=== PATIENT | female | born 1955 | race Caucasian/White ===

== ENCOUNTER 2021-05-18 18:28 | Emergency (ER) | payer MEDICARE, MEDICAID ==
[~2021-05-18] VITALS: Ht 162.6 cm; Wt 69.4 kg
--- NOTE | 2021-05-18 18:57 | ED Syncope ---
General Chief Complaint: Dizziness/Syncope Stated Complaint: GAVE BLOOD, PASSED OUT WHILE HOME, HIGH BLOOD SUGA Nursing Triage Note: PT STATES SHE GAVE BLOOD EARLIER IN DAY AND THEN LATER AT WAS DIZZY AND FAINTED. Source of Information: Patient Exam Limitations: No Limitations History of Present Illness Date Seen by Provider: May 18, 2021 Time Seen by Provider: 18:44 Initial Comments The patient presents ER by private conveyance with chief complaint that she had a syncopal episode about 1 hour prior to arrival witnessed by her Martin. She was sitting on a step and fell backwards but did not fall to the ground or strike her head. She was unconscious for about a minute. Her lowered her to the floor and she seemed to improve. At that time her blood pressure was measured 101 systolic. Afterwards they found her blood sugar to be in the 150s which is high for her. She is on Victoza and Metformin for diabetes. She is on lisinopril 10 mg for her blood pressure. She has an intolerance to statins but no history of coronary disease. She does not smoke use drugs or drink alcohol. She had given blood earlier today and then was not eating as much as usual. She has not felt sick. She was also noted to have been running around after her grandchildren and she is visiting all day. 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 Presyncopal she had a feeling of dizziness coming on when she handed off a grandchild she was holding to her . She had 1 episode of emesis. Allergies and Home Medications Allergies Coded Allergies: Penicillins (Verified Allergy, Unknown, 05/18/21) Bknwlep-XED-GbI Reductase Inhibitor (Verified Allergy, Unknown, 05/18/21) Patient Home Medication List Home Medication List Reviewed: Yes Review of Systems Constitutional: No chills, No diaphoresis EENTM: No ear discharge, No ear pain Respiratory: No cough, No dyspnea on exertion Cardiovascular: No chest pain, No edema, No Hx of Intervention, No palpitations; syncope; No vascular heart diseas Gastrointestinal: No abdominal pain; nausea; No vomiting Genitourinary: No discharge, No dysuria Musculoskeletal: No back pain, No joint pain All Other Systems Reviewed Negative Unless Noted: Yes Past Hkbvzng-Zdczlc-Aylfin Hx Patient Social History Tobacco Use?: No Use of E-Cig and/or Vaping dev: No Substance use?: No Physical Exam Vital Signs Vital Signs - First Documented 05/18/21 18:46 Temp 36.6 Pulse 64 Resp 20 B/P (MAP) 127/45 (72) O2 Delivery Room Air Capillary Refill : Less Than 3 Seconds Height, Weight, BMI Height: '" Weight: lbs. oz. kg; 26.00 BMI Method: General Appearance: No Apparent Distress (She appears mild and peckish), WD/WN HEENT: PERRL/EOMI, Pharynx Normal, Moist Mucous Membranes Neck: Full Range of Motion, Normal Inspection, Non Tender Cardiovascular: Regular Rate, Rhythm, No Edema, Normal Peripheral Pulses Respiratory: Lungs Clear, Normal Breath Sounds, No Accessory Muscle Use, No Respiratory Distress Gastrointestinal: Normal Bowel Sounds, No Organomegaly, No Pulsatile Mass Extremities: Normal Capillary Refill, Normal Inspection, Normal Range of Motion, Non Tender, No Pedal Edema Neurologic/Psychiatric: Alert, Oriented x3, Normal Mood/Affect, 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 Norm as Tested Cranial Nerves: Normal Hearing, Normal Speech Motor/Sensory: No Motor Deficit, No Sensory Deficit, No Pronator Drift Skin: Normal Color, Warm/Dry Progress/Results/Core Measures Results/Orders Lab Results Laboratory Tests Test 05/18/21 18:48 05/18/21 18:55 05/18/21 19:08 Range/Units Glucometer 126 H 70-110 MG/DL White Blood Count 8.9 4.3-11.0 10^3/uL Red Blood Count 4.19 3.80-5.11 10^6/uL Hemoglobin 12.6 11.5-16.0 g/dL Hematocrit 38 35-52 % Mean Corpuscular Volume 90 80-99 fL Mean Corpuscular Hemoglobin 30 25-34 pg Mean Corpuscular Hemoglobin Concent 33 32-36 g/dL Red Cell Distribution Width 12.7 10.0-14.5 % Platelet Count 190 130-400 10^3/uL Mean Platelet Volume 9.3 9.0-12.2 fL Immature Granulocyte % (Auto) 1 % Neutrophils (%) (Auto) 57 42-75 % Lymphocytes (%) (Auto) 36 12-44 % Monocytes (%) (Auto) 5 0-12 % Eosinophils (%) (Auto) 1 0-10 % Basophils (%) (Auto) 0 0-10 % Neutrophils # (Auto) 5.1 1.8-7.8 10^3/uL Lymphocytes # (Auto) 3.2 1.0-4.0 10^3/uL Monocytes # (Auto) 0.5 0.0-1.0 10^3/uL Eosinophils # (Auto) 0.1 0.0-0.3 10^3/uL Basophils # (Auto) 0.0 0.0-0.1 10^3/uL Immature Granulocyte # (Auto) 0.1 0.0-0.1 10^3/uL Sodium Level 138 135-145 MMOL/L Potassium Level 4.0 3.6-5.0 MMOL/L Chloride Level 104 98-107 MMOL/L Carbon Dioxide Level 21 21-32 MMOL/L Anion Gap 13 5-14 MMOL/L Blood Urea Nitrogen 16 7-18 MG/DL Creatinine 0.94 0.60-1.30 MG/DL Estimat Glomerular Filtration Rate 66 BUN/Creatinine Ratio 17 Glucose Level 141 H 70-105 MG/DL Calcium Level 8.9 8.5-10.1 MG/DL Corrected Calcium 8.9 8.5-10.1 MG/DL Magnesium Level 2.1 1.6-2.4 MG/DL Total Bilirubin 0.4 0.1-1.0 MG/DL Aspartate Amino Transf (AST/SGOT) 18 5-34 U/L Alanine Aminotransferase (ALT/SGPT) 21 0-55 U/L Alkaline Phosphatase 40 40-136 U/L Troponin I < 0.028 <0.028 NG/ML C-Reactive Protein High Sensitivity 0.08 0.00-0.50 MG/DL Total Protein 6.5 6.4-8.2 GM/DL Albumin 4.0 3.2-4.5 GM/DL Urine Color YELLOW Urine Clarity CLEAR Urine pH 6.0 5-9 Urine Specific [place] 1.020 1.016-1.022 Urine Protein TRACE H NEGATIVE Urine Glucose (UA) NEGATIVE NEGATIVE Urine Ketones TRACE H NEGATIVE Urine Nitrite NEGATIVE NEGATIVE Urine Bilirubin NEGATIVE NEGATIVE Urine Urobilinogen 0.2 < = 1.0 MG/DL Urine Leukocyte Esterase 2+ H NEGATIVE Urine RBC (Auto) TRACE-I H NEGATIVE Urine RBC RARE /HPF Urine WBC 2-5 /HPF Urine Crystals PRESENT H /LPF Urine Amorphous Sediment RARE JONH URATES H /LPF Urine Bacteria TRACE /HPF Urine Casts NONE /LPF Urine Mucus NEGATIVE /LPF Urine Culture Indicated NO My Orders Orders - WILTON MARIN Ed Iv/Invasive Line Start (05/18/21 18:51) Lactated Ringers (Lr 1000 Ml Iv Solution (05/18/21 19:00) Ondansetron Injection (Zofran Injectio (05/18/21 19:00) Cbc With Automated Diff (05/18/21 18:51) Comprehensive Metabolic Panel (05/18/21 18:51) Hs C Reactive Protein (05/18/21 18:51) Orthostatic Vital Signs (Adult (05/18/21 18:51) Magnesium (05/18/21 18:51) Ua Culture If Indicated (05/18/21 18:51) Troponin I [place] (05/18/21 18:51) Continuous Ekg Monitoring (05/18/21 18:51) Ekg Tracing (05/18/21 18:51) Accucheck Stat ONCE (05/18/21 18:57) Ondansetron Injection (Zofran Injectio (05/18/21 20:30) Rx-Ondansetron Po (Rx-Zofran Po) (05/18/21 20:20) Medications Given in ED Current Medications Medications Dose Ordered Sig/Micah Route Start Time Stop Time Status Last Admin Dose Admin Lactated Ringer's 1,000 ml @ 0 mls/hr Q0M ONCE IV 05/18/21 19:00 05/18/21 19:01 DC 05/18/21 19:24 999 MLS/HR Ondansetron HCl 4 mg ONCE ONCE IVP 05/18/21 19:00 05/18/21 19:01 DC 05/18/21 19:24 4 MG Vital Signs/I&O 05/18/21 05/18/21 18:46 19:03 Temp 36.6 Pulse 64 61 65 72 Resp 20 B/P (MAP) 127/45 (72) 115/43 (67) 126/44 (71) 106/46 (66) O2 Delivery Room Air Blood Pressure Mean: 72 Progress Progress Note #1: Time: 18:56 Progress Note Syncopal work-up including EKG and labs, urinalysis. We will get a set of orthostatic vital signs. Suspect because she gave blood she is a little bit hypovolemic and will give her a liter of lactated Ringer's. Her blood sugar is 126 on arrival. Progress Note #2: Time: 20:20 Progress Note After liter of fluid she looks better, her color is better she is speaking better. She has good blood pressure 130/50. We have encouraged sports drinks. She says her nausea is almost completely gone so we will give her another 4 mg IV Zofran and some take-home pack of Zofran. Return precautions were given. Slope syncope score 0 points. Low risk; 1.9% risk of 30-day serious adverse event. She has a follow-up appointment in about 2 weeks with her doctor. Initial ECG Impression Date: May 18, 2021 Initial ECG Impression Time: 18:53 Initial ECG Rate: 63 Initial ECG Rhythm: Normal Sinus Initial ECG Intervals: Normal Initial ECG Impression: Normal Initial ECG Comparisson: No Previous ECG Available Comment Normal sinus rhythm without clinically relevant ST elevation or depression. Departure Impression Primary Impression: Syncope Qualified Codes: R55 - Syncope and collapse Disposition: 01 HOME, SELF-CARE Condition: Stable Departure-Patient Inst. Decision time for Depature: 20:23 Patient Instructions: Syncope (Fainting) (DC) Add. Discharge Instructions: Drink plenty of fluids (such as sports drinks) and make sure you are getting plenty of rest for the next day or so while your body recuperates from getting blood. It usually does not take more than 1 to 2 days to replenish the volume and shortly after the red blood cells taken from donating blood. Thank you for donating blood. Keep your follow-up appointment with your doctor. Zofran 1 tablet every 6 hours as needed for nausea or vomiting. I urged her to promptly return to the nearest ER if you experience chest pain, heaviness, shortness of air or other worrisome symptoms. All discharge instructions reviewed with patient and/or family. Voiced understanding. WILTON MARIN May 18, 2021 18:56
[2021-05-18] MEDS ORDERED: ONDANSETRON 4 MG/2 ML (SDV) Z0FRAN IVP ONE ×2 (19:00→20:30)
[2021-05-18] MEDS ORDERED: LACTATED RINGERS 1,000 ML IV ONE (19:00)
[2021-05-18 19:02] LABS: BASOPHILS % (AUTO) 0 % (0-10); EOSINOPHILS # (AUTO) 0.1 10^3/uL (0.0-0.3); EOSINOPHILS % (AUTO) 1 % (0-10); HEMATOCRIT 38 % (35-52); HEMOGLOBIN 12.6 g/dL (11.5-16.0); LYMPHOCYTES # (AUTO) 3.2 10^3/uL (1.0-4.0); LYMPHOCYTES % (AUTO) 36 % (12-44); MEAN CORPUSCULAR HEMOGLOBIN 30 pg (25-34); MEAN CORPUSCULAR HGB CONC 33 g/dL (32-36); MEAN CORPUSCULAR VOLUME 90 fL (80-99); MEAN PLATELET VOLUME 9.3 fL (9.0-12.2); MONOCYTES # (AUTO) 0.5 10^3/uL (0.0-1.0); MONOCYTES % (AUTO) 5 % (0-12); NEUTROPHILS # (AUTO) 5.1 10^3/uL (1.8-7.8); NEUTROPHILS % (AUTO) 57 % (42-75); PLATELET COUNT 190 10^3/uL (130-400); WHITE BLOOD COUNT 8.9 10^3/uL (4.3-11.0)
[2021-05-18 19:03] VITALS: BP_SYST 106; BP_SYST 115; BP_SYST 126; BP_DIAS 43; BP_DIAS 44; BP_DIAS 46
[2021-05-18 19:24] LABS: BILIRUBIN,URINE NEGATIVE (NEGATIVE); CLARITY,URINE CLEAR; COLOR,URINE YELLOW; GLUCOSE, URINE (UA) NEGATIVE (NEGATIVE); KETONES,URINE TRACE (NEGATIVE); LEUKOCYTE ESTERASE ,URINE 2+ (NEGATIVE); NITRITE,URINE NEGATIVE (NEGATIVE); PROTEIN,URINE TRACE (NEGATIVE)
[2021-05-18 19:27] LABS: AMORPHOUS SEDIMENT,UR RARE AMOR URATES /LPF; BACTERIA,URINE TRACE /HPF; RBC,URINE RARE /HPF
[2021-05-18 19:28] LABS: ALANINE AMINOTRANSFERASE 21 U/L (0-55); ALKALINE PHOSPHATASE 40 U/L (40-136); BILIRUBIN,TOTAL 0.4 MG/DL (0.1-1.0); BUN/CREATININE RATIO 17; CALCIUM 8.9 MG/DL (8.5-10.1); CARBON DIOXIDE 21 MMOL/L (21-32); CHLORIDE 104 MMOL/L (98-107); CREATININE SERUM 0.94 MG/DL (0.60-1.30); GFR ESTIMATED 66; GLUCOSE 141 MG/DL (70-105); MAGNESIUM 2.1 MG/DL (1.6-2.4); SODIUM 138 MMOL/L (135-145); TOTAL PROTEIN 6.5 GM/DL (6.4-8.2)
[2021-05-18] MEDS ORDERED: RX-ONDANSETRON 4 MG ODT (ZOFRAN) PPK #4 PO STA (20:20)
[2021-05-18 20:36] VITALS: BP 130/50
== END 2021-05-18 20:36 | disposition home or self-care (01) ==
LOC: ER 18:35
DX: R55 Syncope and collapse (principal); E11.9 Type 2 diabetes mellitus without complications; I10 Essential (primary) hypertension; Z79.84 Long term (current) use of oral hypoglycemic drugs
CPT/HCPCS: 36415; 80053; 81000; 82947; 83735; 84484; 85025; 86141